=== PATIENT | male | born 1970 | race Caucasian/White ===

== ENCOUNTER 2016-10-11 13:14 | Emergency (ER) | payer OTHER ==
[~2016-10-11] VITALS: Ht 165.1 cm; Wt 90.6 kg
[2016-10-11 14:58] LABS: HEMATOCRIT 47.4 % (38.0-50.0); MCHC 34.8 G/DL (30.0-36.0); MCV 88.9 FL (86-99); MEAN PLAT.VOLUME 10.1 uM^3 (9.0-12.4); PLATELET COUNT 221 K/uL (156-360); RBC DIS.WIDTH-CV 12.1 % (11.8-14.6); RBC DIS.WIDTH-SD 39.1 % (39-53); RED BLOOD COUNT 5.33 M/uL (4.00-5.50); WHITE BLOOD COUNT 9.9 K/uL (4.1-10.2)
[2016-10-11 15:08] LABS: CHLORIDE 104 mEq/L (99-109); POTASSIUM 3.7 mEq/L (3.7-5.4); SODIUM 139 mEq/L (136-147)
[2016-10-11 15:09] LABS: GLUCOSE 126 mg/dL (70-99)
[2016-10-11] MEDS ORDERED: HYCODAN SYRUP480 ML PO (15:09)
[2016-10-11] MEDS ORDERED: PREDNISONE20 MG PO (15:09)
[2016-10-11] MEDS ORDERED: LEVAQUIN750 MG PO (15:09)
[2016-10-11] MEDS ORDERED: PERCOCET 5/31 TABLET PO (15:09)
[2016-10-11 15:11] LABS: ANION GAP 11 MEQ/L (2-14)
[2016-10-11 15:13] LABS: GFR ESTIMATE (CALCULATED) > 59 mL/min/
[2016-10-11 15:14] LABS: UREA NITROGEN (BUN) 20 mg/dL (9-23)
[2016-10-11] MEDS ORDERED: FLEXERIL10 MG PO (15:31)
[2016-10-11 15:32] VITALS: BP 123/87
== END 2016-10-11 15:39 | disposition home or self-care (01) ==
LOC: EME 13:14 → EXP 13:14
PROVIDERS: Nurse Practitioner Family
DX: J18.9 Pneumonia, unspecified organism (principal); S20.212A Contusion of left front wall of thorax, initial encounter; X58.XXXA Exposure to other specified factors, initial encounter; F17.200 Nicotine dependence, unspecified, uncomplicated
CPT/HCPCS: 71020; 80048; 85027; 99281; 99284; J7512